=== PATIENT | female | born 1945 | race Caucasian/White ===

== ENCOUNTER 2020-05-23 07:38 | Inpatient (IN) ==
[2020-05-23] MEDS ORDERED: Isovue-370 500 ML BOTTLE IVP ONE ×2 (07:46→10:13)
[2020-05-23 08:36] LABS: Basophils # 0.1 K/mcL (0.0-0.2); Eosinophils % 0.3 %; Hematocrit 31.5 % (35.3-44.9); Hemoglobin 10.1 g/dL (11.5-15.4); Immature Granulocytes % 0.6 % (0-4); Lymphocytes # 1.2 K/mcL (0.6-4.6); Lymphocytes % 9.8 %; Mean Corpuscular HGB Conc 32.1 g/dL (31.6-35.5); Mean Corpuscular Hemoglobin 27.5 pg (28.0-33.3); Mean Corpuscular Volume 85.8 fL (83.0-100.0); Mean Platelet Volume 10.3 fL (9.4-12.4); Monocytes % 7.6 %; Neutrophils # 10.2 K/mcL (1.6-8.9); Platelet Count 339 K/mcL (140-400); Red Blood Count 3.67 M/mcL (3.82-4.97); Red Cell Distribution Width 15.5 % (11.5-14.5); Segmented Neutrophils % 80.7 %; White Blood Count 12.6 K/mcL (4.3-11.1)
[2020-05-23 08:52] LABS: INR 2.6; Prothrombin Time 29.2 Seconds (9.4-12.1)
[2020-05-23 08:58] LABS: BUN/Creatinine Ratio 28 (6-26); Blood Urea Nitrogen 26 mg/dL (8-23); Calcium 9.3 mg/dL (8.6-10.3); Carbon Dioxide 25 mEq/L (23-29); Chloride 99 mEq/L (98-107); Glucose 277 mg/dL (70-105); Osmolality,Calculated 291 (280-300); Potassium 3.9 mEq/L (3.5-5.1); Sodium 133 mEq/L (136-145); eGFR For African Americans > 60 (> 60); eGFR For Non-African Americans 59 (> 60)
[2020-05-23 10:43] LABS: Alanine Aminotransferase 8 Units/L (7-52); Albumin 3.6 g/dL (3.5-5.7); Alkaline Phosphatase 58 Units/L (34-104); Aspartate Amino Transferase 12 Units/L (13-39); Bilirubin,Direct 0.2 mg/dL (0.0-0.2); Bilirubin,Indirect 0.4 mg/dL (0.0-1.0); Bilirubin,Total 0.6 mg/dL (0.3-1.0); Globulin 3.6 g/dL (2.4-3.5); Total Protein 7.2 g/dL (6.4-8.9)
[2020-05-23] MEDS ORDERED: Ampicillin/Sulbactam 1,500 MG in 0.9 % Sodium Chloride Mini Bag 100 ML IVPB ONE (12:15)
[2020-05-23] MEDS ORDERED: Ondansetron ODT 4 MG TAB.RAPDIS PO PRN (13:03)
[2020-05-23] MEDS ORDERED: Acetaminophen 325 MG TABLET PO PRN (13:07)
[2020-05-23] MEDS ORDERED: Naloxone 0.4 MG/ML INJ IVP PRN (13:07)
[2020-05-23] MEDS ORDERED: Dextrose Gel 15 GM/37.5 ML TUBE PO PRN ×2 (13:07)
[2020-05-23] MEDS ORDERED: D5% in Water 1,000 ML IVC PRN (13:07)
[2020-05-23] MEDS ORDERED: *HR* Dextrose 50 % in Water (Vial) 50 ML VIAL IVP PRN (13:07)
[2020-05-23] MEDS ORDERED: Clindamycin 900 MG/50 ML 900 MG/50 ML IV.SOLN IVPB ONE (13:14)
[2020-05-23] MEDS ORDERED: Vancomycin 1,250 MG/262.5 ML IV.SOLN IVPB ONE (13:46)
[2020-05-23] MEDS ORDERED: *HR* FentaNYL (PF) 100 MCG/2 ML VIAL ONE (13:48)
[2020-05-23] MEDS ORDERED: *HR* Propofol 200 MG/20 ML VIAL IVP ONE (13:48)
[2020-05-23] MEDS ORDERED: *HR* Midazolam HCl 2 MG/2 ML VIAL ONE (13:48)
[2020-05-23] MEDS ORDERED: Ondansetron 4 MG/2 ML VIAL ONE (13:50)
[2020-05-23] MEDS ORDERED: Lidocaine -MPF 2% 2 ML VIAL ONE (13:50)
[2020-05-23] MEDS ORDERED: *HR* Succinylcholine 200 MG/10 ML VIAL IVP ONE (13:50)
[2020-05-23] MEDS ORDERED: Lidocaine -MPF 4% 5 ML AMPUL ONE ×3 (13:50→14:17)
[2020-05-23] MEDS ORDERED: Lidocaine 5% OINT 35 APPL/35.44 GM TUBE TP ONE (13:58)
[2020-05-23] MEDS ORDERED: Lidocaine/EPI 1:200k 1% PF 10 ML VIAL ONE (14:16)
[2020-05-23] MEDS ORDERED: Oxymetazoline Nasal SPRAY BOTTLE NS ONE (14:17)
[2020-05-23] MEDS ORDERED: *HR* Rocuronium Bromide 50 MG/5 ML VIAL ONE (16:19)
[2020-05-23] MEDS ORDERED: *HR* Midazolam HCl 5 MG/5 ML VIAL IVP ONE (16:22)
[2020-05-23] MEDS ORDERED: Artificial Tears SOLN 15 ML BOTTLE BOTH EYES PRN (17:17)
[2020-05-23] MEDS: FentaNYL (PF) 1,000 MCG/100 ML IV.SOLN IVC SCH (17:32)
[2020-05-23] MEDS ORDERED: Doxycycline 100 MG VIAL ONE (17:35)
[2020-05-23] MEDS: 0.9 % Sodium Chloride 1,000 ML IVC SCH ×2 (17:39→20:40)
[2020-05-23] MEDS: Doxycycline 100 MG in 0.9 % Sodium Chloride Mini Bag 100 ML IVPB SCH (17:40)
[2020-05-23] MEDS: Piperacillin/Tazobactam 3.375 GM in 0.9 % Sodium Chloride Mini Bag 100 ML IVPB SCH (17:43)
[2020-05-23] MEDS ORDERED: Ampicillin/Sulbactam 1,500 MG in 0.9 % Sodium Chloride Mini Bag 100 ML IVPB SCH (18:00)
[2020-05-23] MEDS: Pantoprazole 40 MG VIAL IVP SCH (18:06)
[2020-05-23] MEDS: Insulin LISPRO 300 UNITS/3 ML VIAL SUBQ SCH (18:07)
[2020-05-23 19:35] LABS: Adenovirus Not Detected (Not Detect); Bordetella Pertussis Not Detected (Not Detect); Chlamydophila pneumoniae Not Detected (Not Detect); Coronavirus 229E Not Detected (Not Detect); Coronavirus HKU1 Not Detected (Not Detect); Coronavirus NL63 Not Detected (Not Detect); Coronavirus OC43 Not Detected (Not Detect); Human Metapneumovirus Not Detected (Not Detect); Human Rhinovirus/Enterovirus Not Detected (Not Detect); Influenza A Subtype 2009 H1 Not Detected (Not Detect); Influenza B Not Detected (Not Detect); Mycoplasma pneumoniae Not Detected (Not Detect); Parainfluenza Virus 1 Not Detected (Not Detect); Parainfluenza Virus 2 Not Detected (Not Detect); Parainfluenza Virus 3 Not Detected (Not Detect); Parainfluenza Virus 4 Not Detected (Not Detect); Respiratory Syncytial Virus Not Detected (Not Detect); SARS-CoV-2 Not Detected (Not Detect)
[2020-05-23] MEDS: *HR* Amiodarone 200 MG TABLET PO SCH (20:26)
[2020-05-23] MEDS: Mirtazapine 15 MG TABLET PO SCH (20:27)
[2020-05-23] MEDS: Nystatin POWDER 30 GM BOTTLE TP SCH (20:28)
[2020-05-23] MEDS: Artificial Tears SOLN 15 ML BOTTLE BOTH EYES SCH (20:32)
[2020-05-23] MEDS ORDERED: *HR* Rivaroxaban 10 MG TABLET PO SCH (21:00)
[2020-05-23] MEDS ORDERED: 0.9 % Sodium Chloride 250 ML ONE (21:13)
[2020-05-23 21:26] LABS: ABG Base Excess -1 mEq/L (-2 to 3); ABG HCO3 25 mEq/L (21-27); ABG Oxygen Saturation 98 % (95-98); ABG PCO2 42 mmHg (35-45); ABG PH 7.37 pH Units (7.32-7.45); ABG PO2 116 mmHg (85-104); ABG TCO2 26 mEq/L (20-26); Blood Gas Modality AF; Blood Gas VT 380 cc
[2020-05-23] MEDS: Chlorhexidine Rinse 15 ML MOUTHWASH MM SCH (21:29)
[2020-05-24] MEDS: Artificial Tears SOLN 15 ML BOTTLE BOTH EYES SCH ×7 (00:24→23:04)
[2020-05-24] MEDS: Insulin LISPRO 300 UNITS/3 ML VIAL SUBQ SCH ×5 (00:24→23:39)
[2020-05-24] MEDS: 0.9 % Sodium Chloride 1,000 ML IVC SCH (01:03)
[2020-05-24] MEDS: Piperacillin/Tazobactam 3.375 GM in 0.9 % Sodium Chloride Mini Bag 100 ML IVPB SCH ×3 (01:04→20:52)
[2020-05-24 04:42] LABS: ABG Base Excess 0 mEq/L (-2 to 3); ABG HCO3 26 mEq/L (21-27); ABG Oxygen Saturation 98 % (95-98); ABG PCO2 45 mmHg (35-45); ABG PH 7.37 pH Units (7.32-7.45); ABG PO2 104 mmHg (85-104); ABG TCO2 27 mEq/L (20-26); Blood Gas VT 380 cc
[2020-05-24 06:00] LABS: Basophils # 0.1 K/mcL (0.0-0.2); Basophils % 0.7 %; Hematocrit 25.2 % (35.3-44.9); Immature Granulocytes % 0.7 % (0-4); Lymphocytes # 0.5 K/mcL (0.6-4.6); Lymphocytes % 5.7 %; Mean Corpuscular Hemoglobin 27.8 pg (28.0-33.3); Mean Corpuscular Volume 89.7 fL (83.0-100.0); Mean Platelet Volume 10.6 fL (9.4-12.4); Monocytes # 0.2 K/mcL (0.0-1.3); Monocytes % 2.5 %; Neutrophils # 7.7 K/mcL (1.6-8.9); Platelet Count 306 K/mcL (140-400); Red Blood Count 2.81 M/mcL (3.82-4.97); Red Cell Distribution Width 15.4 % (11.5-14.5); Segmented Neutrophils % 90.4 %; White Blood Count 8.6 K/mcL (4.3-11.1)
[2020-05-24 06:05] LABS: Hemoglobin 7.8 g/dL (11.5-15.4)
[2020-05-24 06:28] LABS: BUN/Creatinine Ratio 42 (6-26); Blood Urea Nitrogen 41 mg/dL (8-23); Calcium 8.9 mg/dL (8.6-10.3); Carbon Dioxide 24 mEq/L (23-29); Chloride 104 mEq/L (98-107); Glucose 210 mg/dL (70-105); Osmolality,Calculated 302 (280-300); Sodium 138 mEq/L (136-145); eGFR For African Americans > 60 (> 60); eGFR For Non-African Americans 55 (> 60)
[2020-05-24] MEDS: Doxycycline 100 MG in 0.9 % Sodium Chloride Mini Bag 100 ML IVPB SCH ×2 (06:43→20:34)
[2020-05-24] MEDS ORDERED: 0.9 % Sodium Chloride 250 ML ONE ×2 (08:43→22:39)
[2020-05-24] MEDS: Chlorhexidine Rinse 15 ML MOUTHWASH MM SCH ×2 (08:45→20:33)
[2020-05-24] MEDS: *HR* Amiodarone 200 MG TABLET PO SCH ×2 (08:45→20:40)
[2020-05-24] MEDS: dexAMETHasone 4 MG TABLET PO SCH (08:45)
[2020-05-24] MEDS: Pantoprazole 40 MG VIAL IVP SCH (08:46)
[2020-05-24 09:12] LABS: Hematocrit 23.8 % (35.3-44.9); Hemoglobin 7.4 g/dL (11.5-15.4); Mean Corpuscular HGB Conc 31.1 g/dL (31.6-35.5); Mean Corpuscular Hemoglobin 27.7 pg (28.0-33.3); Mean Corpuscular Volume 89.1 fL (83.0-100.0); Mean Platelet Volume 10.6 fL (9.4-12.4); Platelet Count 308 K/mcL (140-400); Red Blood Count 2.67 M/mcL (3.82-4.97); Red Cell Distribution Width 15.6 % (11.5-14.5); White Blood Count 9.9 K/mcL (4.3-11.1)
[2020-05-24 09:13] LABS: INR 1.6; Prothrombin Time 18.1 Seconds (9.4-12.1)
[2020-05-24 09:16] LABS: Activated Partial Thrombo Time 33.9 Seconds (26.0-36.0)
[2020-05-24] MEDS ORDERED: *HR* Midazolam HCl 5 MG/5 ML VIAL IVP ONE (09:44)
[2020-05-24] MEDS ORDERED: *HR* Rocuronium Bromide 50 MG/5 ML VIAL IVP ONE (09:44)
[2020-05-24] MEDS ORDERED: *HR* Propofol 200 MG/20 ML VIAL IVP ONE (09:44)
[2020-05-24] MEDS: Nystatin POWDER 30 GM BOTTLE TP SCH ×2 (09:46→20:39)
[2020-05-24] MEDS: FentaNYL (PF) 1,000 MCG/100 ML IV.SOLN IVC SCH ×2 (09:49→23:20)
[2020-05-24] MEDS: Midazolam HCl 50 MG/100 ML IV.SOLN IVC SCH (15:35)
[2020-05-24] MEDS: Mirtazapine 15 MG TABLET PO SCH (20:39)
[2020-05-24 22:18] LABS: Basophils % 0.1 %; Hematocrit 21.8 % (35.3-44.9); Hemoglobin 6.9 g/dL (11.5-15.4); Immature Granulocytes % 1.3 % (0-4); Lymphocytes # 0.6 K/mcL (0.6-4.6); Lymphocytes % 5.3 %; Mean Corpuscular HGB Conc 31.7 g/dL (31.6-35.5); Mean Corpuscular Hemoglobin 28.2 pg (28.0-33.3); Mean Platelet Volume 9.7 fL (9.4-12.4); Monocytes # 0.6 K/mcL (0.0-1.3); Monocytes % 5.2 %; Neutrophils # 9.6 K/mcL (1.6-8.9); Platelet Count 226 K/mcL (140-400); Red Blood Count 2.45 M/mcL (3.82-4.97); Red Cell Distribution Width 15.4 % (11.5-14.5); Segmented Neutrophils % 88.1 %; White Blood Count 10.8 K/mcL (4.3-11.1)
[2020-05-25] MEDS: Piperacillin/Tazobactam 3.375 GM in 0.9 % Sodium Chloride Mini Bag 100 ML IVPB SCH ×3 (01:31→17:54)
[2020-05-25] MEDS: Artificial Tears SOLN 15 ML BOTTLE BOTH EYES SCH ×5 (03:32→20:21)
[2020-05-25 04:27] LABS: ABG Base Excess 0 mEq/L (-2 to 3); ABG HCO3 25 mEq/L (21-27); ABG Oxygen Saturation 98 % (95-98); ABG PCO2 43 mmHg (35-45); ABG PH 7.37 pH Units (7.32-7.45); ABG PO2 105 mmHg (85-104); ABG TCO2 26 mEq/L (20-26); Blood Gas Modality AF; Blood Gas VT 380 cc
[2020-05-25 04:31] LABS: VBG Ionized Calcium 1.17 mmol/L (1.15-1.35)
[2020-05-25 04:35] LABS: Hematocrit 27.4 % (35.3-44.9)
[2020-05-25 04:36] LABS: Hemoglobin 8.7 g/dL (11.5-15.4)
[2020-05-25 04:38] LABS: INR 1.4; Prothrombin Time 15.9 Seconds (9.4-12.1)
[2020-05-25 04:39] LABS: Activated Partial Thrombo Time 28.2 Seconds (26.0-36.0)
[2020-05-25 05:06] LABS: BUN/Creatinine Ratio 54 (6-26); Blood Urea Nitrogen 52 mg/dL (8-23); Calcium 8.8 mg/dL (8.6-10.3); Carbon Dioxide 25 mEq/L (23-29); Chloride 110 mEq/L (98-107); Glucose 148 mg/dL (70-105); Magnesium 2.4 mg/dL (1.6-2.6); Osmolality,Calculated 309 (280-300); Phosphorous 2.7 mg/dL (2.7-4.5); Potassium 3.8 mEq/L (3.5-5.1); Sodium 141 mEq/L (136-145); eGFR For African Americans > 60 (> 60); eGFR For Non-African Americans 56 (> 60)
[2020-05-25] MEDS: Insulin LISPRO 300 UNITS/3 ML VIAL SUBQ SCH ×3 (05:38→18:16)
[2020-05-25] MEDS: Doxycycline 100 MG in 0.9 % Sodium Chloride Mini Bag 100 ML IVPB SCH ×2 (05:44→18:47)
[2020-05-25] MEDS: Chlorhexidine Rinse 15 ML MOUTHWASH MM SCH ×2 (08:45→20:21)
[2020-05-25] MEDS: Pantoprazole 40 MG VIAL IVP SCH (08:45)
[2020-05-25] MEDS: *HR* Amiodarone 200 MG TABLET PO SCH ×2 (08:46→19:23)
[2020-05-25] MEDS: dexAMETHasone 4 MG TABLET PO SCH (08:46)
[2020-05-25] MEDS: Nystatin POWDER 30 GM BOTTLE TP SCH ×2 (08:47→20:21)
[2020-05-25] MEDS: Midazolam HCl 50 MG/100 ML IV.SOLN IVC SCH (17:38)
[2020-05-25] MEDS ORDERED: *HR* LORazepam 2 MG/ML VIAL ONE (18:06)
[2020-05-25] MEDS ORDERED: *HR* LORazepam 2 MG/ML VIAL IVP ONE (18:18)
[2020-05-25] MEDS: Mirtazapine 15 MG TABLET PO SCH (19:23)
[2020-05-25] MEDS ORDERED: Vancomycin 1,250 MG/262.5 ML IV.SOLN IVPB SCH (21:00)
[2020-05-26] MEDS: Artificial Tears SOLN 15 ML BOTTLE BOTH EYES SCH ×4 (00:34→14:27)
[2020-05-26] MEDS: Insulin LISPRO 300 UNITS/3 ML VIAL SUBQ SCH ×4 (00:38→17:48)
[2020-05-26] MEDS: Piperacillin/Tazobactam 3.375 GM in 0.9 % Sodium Chloride Mini Bag 100 ML IVPB SCH ×3 (03:02→17:36)
[2020-05-26] MEDS: Doxycycline 100 MG in 0.9 % Sodium Chloride Mini Bag 100 ML IVPB SCH (05:53)
[2020-05-26] MEDS: dexAMETHasone 4 MG TABLET PO SCH (08:44)
[2020-05-26] MEDS: *HR* Amiodarone 200 MG TABLET PO SCH (08:44)
[2020-05-26] MEDS: Pantoprazole 40 MG VIAL IVP SCH (08:44)
[2020-05-26] MEDS: Chlorhexidine Rinse 15 ML MOUTHWASH MM SCH ×2 (08:45→20:56)
[2020-05-26] MEDS: Nystatin POWDER 30 GM BOTTLE TP SCH ×2 (09:10→20:56)
[2020-05-26] MEDS: Midazolam HCl 50 MG/100 ML IV.SOLN IVC SCH (11:24)
[2020-05-26 12:42] LABS: Basophils % 0.3 %; Eosinophils % 0.1 %; Hematocrit 26.8 % (35.3-44.9); Hemoglobin 8.4 g/dL (11.5-15.4); Immature Granulocytes % 0.7 % (0-4); Lymphocytes # 0.5 K/mcL (0.6-4.6); Lymphocytes % 6.8 %; Mean Corpuscular HGB Conc 31.3 g/dL (31.6-35.5); Mean Corpuscular Hemoglobin 28.4 pg (28.0-33.3); Mean Corpuscular Volume 90.5 fL (83.0-100.0); Mean Platelet Volume 9.4 fL (9.4-12.4); Monocytes # 0.1 K/mcL (0.0-1.3); Monocytes % 0.9 %; Neutrophils # 6.2 K/mcL (1.6-8.9); Platelet Count 245 K/mcL (140-400); Red Blood Count 2.96 M/mcL (3.82-4.97); Red Cell Distribution Width 15.6 % (11.5-14.5); Segmented Neutrophils % 91.2 %; White Blood Count 6.8 K/mcL (4.3-11.1)
[2020-05-26 12:46] LABS: VBG Ionized Calcium 1.22 mmol/L (1.15-1.35)
[2020-05-26 12:59] LABS: BUN/Creatinine Ratio 53 (6-26); Blood Urea Nitrogen 37 mg/dL (8-23); Calcium 8.8 mg/dL (8.6-10.3); Carbon Dioxide 24 mEq/L (23-29); Chloride 110 mEq/L (98-107); Glucose 209 mg/dL (70-105); Magnesium 2.1 mg/dL (1.6-2.6); Osmolality,Calculated 307 (280-300); Phosphorous 1.3 mg/dL (2.7-4.5); Potassium 3.6 mEq/L (3.5-5.1); Sodium 141 mEq/L (136-145); eGFR For African Americans > 60 (> 60); eGFR For Non-African Americans > 60 (> 60)
[2020-05-26] MEDS ORDERED: Barium Sulfate 1 TAB TABLET PO ONE (13:49)
[2020-05-26] MEDS ORDERED: E-Z-PAQUE (BARIUM SULF) SUSP 1 BOTTLE PO ONE (13:49)
[2020-05-26] MEDS ORDERED: Potassium Phosphate 44 MEQ in 0.9 % Sodium Chloride 250 ML IVPB ONE (15:54)
[2020-05-26] MEDS: *HR* Heparin 5,000 UNIT/ML VIAL SQ SCH (17:35)
[2020-05-26] MEDS: Mirtazapine 15 MG TABLET PO SCH (20:56)
[2020-05-27] MEDS: Insulin LISPRO 300 UNITS/3 ML VIAL SUBQ SCH ×5 (00:15→22:56)
[2020-05-27] MEDS: Piperacillin/Tazobactam 3.375 GM in 0.9 % Sodium Chloride Mini Bag 100 ML IVPB SCH ×2 (02:24→10:16)
[2020-05-27 05:15] LABS: BUN/Creatinine Ratio 53 (6-26); Blood Urea Nitrogen 34 mg/dL (8-23); Calcium 8.6 mg/dL (8.6-10.3); Carbon Dioxide 26 mEq/L (23-29); Chloride 109 mEq/L (98-107); Glucose 187 mg/dL (70-105); Magnesium 1.9 mg/dL (1.6-2.6); Osmolality,Calculated 303 (280-300); Potassium 3.9 mEq/L (3.5-5.1); Sodium 140 mEq/L (136-145); eGFR For African Americans > 60 (> 60); eGFR For Non-African Americans > 60 (> 60)
[2020-05-27 05:21] LABS: Hematocrit 24.9 % (35.3-44.9); Immature Granulocytes % 0.3 % (0-4); Lymphocytes # 0.9 K/mcL (0.6-4.6); Lymphocytes % 15.1 %; Mean Corpuscular HGB Conc 32.1 g/dL (31.6-35.5); Mean Corpuscular Hemoglobin 28.3 pg (28.0-33.3); Mean Platelet Volume 9.8 fL (9.4-12.4); Monocytes # 0.4 K/mcL (0.0-1.3); Monocytes % 7.5 %; Neutrophils # 4.5 K/mcL (1.6-8.9); Platelet Count 234 K/mcL (140-400); Red Blood Count 2.83 M/mcL (3.82-4.97); Red Cell Distribution Width 15.2 % (11.5-14.5); Segmented Neutrophils % 77.1 %; White Blood Count 5.8 K/mcL (4.3-11.1)
[2020-05-27 05:29] LABS: Thyroid Stimulating Hormone 0.154 mcIU/mL (0.340-5.600)
[2020-05-27] MEDS: *HR* Heparin 5,000 UNIT/ML VIAL SQ SCH ×2 (05:42→18:45)
[2020-05-27] MEDS: Pantoprazole 40 MG VIAL IVP SCH (10:15)
[2020-05-27] MEDS: dexAMETHasone 4 MG TABLET PO SCH (10:15)
[2020-05-27] MEDS: Chlorhexidine Rinse 15 ML MOUTHWASH MM SCH (10:15)
[2020-05-27] MEDS: *HR* Amiodarone 200 MG TABLET PO SCH ×2 (10:15→10:27)
[2020-05-27] MEDS: Nystatin POWDER 30 GM BOTTLE TP SCH ×3 (10:16→22:54)
[2020-05-27] MEDS ORDERED: Ondansetron ODT 4 MG TAB.RAPDIS PO PRN (13:22)
[2020-05-27] MEDS ORDERED: D5% in Water 1,000 ML IVC PRN (13:22)
[2020-05-27] MEDS ORDERED: *HR* Dextrose 50 % in Water (Vial) 50 ML VIAL IVP PRN (13:22)
[2020-05-27] MEDS ORDERED: Dextrose Gel 15 GM/37.5 ML TUBE PO PRN ×2 (13:22)
[2020-05-27] MEDS ORDERED: Acetaminophen 325 MG TABLET PO PRN (13:22)
[2020-05-27] MEDS ORDERED: Naloxone 0.4 MG/ML INJ IVP PRN (13:22)
[2020-05-27] MEDS ORDERED: Perflutren Lipid Microsphere 1.3 ML in 0.9 % Sodium Chloride 8.7 ML IVP PRN (17:18)
[2020-05-27] MEDS: Mirtazapine 15 MG TABLET PO SCH (21:08)
[2020-05-28 04:07] LABS: Basophils % 0.2 %; Eosinophils % 0.2 %; Hematocrit 24.5 % (35.3-44.9); Hemoglobin 8.1 g/dL (11.5-15.4); Immature Granulocytes % 0.7 % (0-4); Lymphocytes % 22.1 %; Mean Corpuscular HGB Conc 33.1 g/dL (31.6-35.5); Mean Corpuscular Hemoglobin 28.5 pg (28.0-33.3); Mean Corpuscular Volume 86.3 fL (83.0-100.0); Mean Platelet Volume 9.5 fL (9.4-12.4); Monocytes # 0.3 K/mcL (0.0-1.3); Monocytes % 7.3 %; Platelet Count 228 K/mcL (140-400); Red Blood Count 2.84 M/mcL (3.82-4.97); Red Cell Distribution Width 15.1 % (11.5-14.5); Segmented Neutrophils % 69.5 %; White Blood Count 4.4 K/mcL (4.3-11.1)
[2020-05-28 04:21] LABS: VBG Ionized Calcium 1.23 mmol/L (1.15-1.35)
[2020-05-28 04:24] LABS: Magnesium 1.7 mg/dL (1.6-2.6); Phosphorous 2.1 mg/dL (2.7-4.5)
[2020-05-28] MEDS: *HR* Heparin 5,000 UNIT/ML VIAL SQ SCH (05:46)
[2020-05-28] MEDS ORDERED: Potassium Phosphate 44 MEQ in 0.9 % Sodium Chloride 250 ML IVPB ONE (08:15)
[2020-05-28] MEDS ORDERED: Pantoprazole 40 MG VIAL IVP SCH (09:00)
[2020-05-28] MEDS: dexAMETHasone 4 MG TABLET PO SCH (09:50)
[2020-05-28] MEDS: Nystatin POWDER 30 GM BOTTLE TP SCH ×2 (09:51→21:02)
[2020-05-28] MEDS: Insulin LISPRO 300 UNITS/3 ML VIAL SUBQ SCH ×4 (09:51→21:01)
[2020-05-28] MEDS: Mirtazapine 15 MG TABLET PO SCH (20:58)
[2020-05-29 07:04] LABS: Hematocrit 26.9 % (35.3-44.9); Hemoglobin 8.5 g/dL (11.5-15.4); Mean Corpuscular HGB Conc 31.6 g/dL (31.6-35.5); Mean Corpuscular Hemoglobin 27.6 pg (28.0-33.3); Mean Corpuscular Volume 87.3 fL (83.0-100.0); Mean Platelet Volume 9.9 fL (9.4-12.4); Platelet Count 247 K/mcL (140-400); Red Blood Count 3.08 M/mcL (3.82-4.97); Red Cell Distribution Width 14.9 % (11.5-14.5); White Blood Count 4.7 K/mcL (4.3-11.1)
[2020-05-29] MEDS: Nystatin POWDER 30 GM BOTTLE TP SCH ×2 (11:10→21:19)
[2020-05-29] MEDS: dexAMETHasone 4 MG TABLET PO SCH (11:11)
[2020-05-29] MEDS: Insulin LISPRO 300 UNITS/3 ML VIAL SUBQ SCH ×4 (11:11→21:20)
[2020-05-29] MEDS ORDERED: Sennosides 8.6 MG TABLET PO PRN (14:43)
[2020-05-29] MEDS: *HR* Rivaroxaban 10 MG TABLET PO SCH (17:26)
[2020-05-29] MEDS: Furosemide 20 MG TABLET PO SCH (17:27)
[2020-05-29] MEDS: Mirtazapine 15 MG TABLET PO SCH (21:19)
[2020-05-30] MEDS: Furosemide 20 MG TABLET PO SCH ×2 (08:33→16:35)
[2020-05-30] MEDS: amLODIPine 5 MG TABLET PO SCH (08:33)
[2020-05-30] MEDS: dexAMETHasone 4 MG TABLET PO SCH (08:33)
[2020-05-30] MEDS: Insulin LISPRO 300 UNITS/3 ML VIAL SUBQ SCH ×4 (08:33→22:20)
[2020-05-30] MEDS: Nystatin POWDER 30 GM BOTTLE TP SCH ×2 (08:34→22:16)
[2020-05-30] MEDS ORDERED: *HR* Amiodarone 200 MG TABLET PO SCH ×2 (09:00)
[2020-05-30] MEDS: *HR* Rivaroxaban 10 MG TABLET PO SCH (16:35)
[2020-05-30] MEDS: Mirtazapine 15 MG TABLET PO SCH (22:16)
[2020-05-31] MEDS: Insulin LISPRO 300 UNITS/3 ML VIAL SUBQ SCH ×4 (08:28→21:12)
[2020-05-31] MEDS: amLODIPine 5 MG TABLET PO SCH (08:39)
[2020-05-31] MEDS: dexAMETHasone 4 MG TABLET PO SCH (08:39)
[2020-05-31] MEDS: Nystatin POWDER 30 GM BOTTLE TP SCH ×2 (08:39→21:11)
[2020-05-31] MEDS: Furosemide 20 MG TABLET PO SCH ×2 (08:39→16:32)
[2020-05-31 11:05] LABS: Basophils % 0.4 %; Eosinophils # 0.4 K/mcL (0.0-0.6); Eosinophils % 5.4 %; Hematocrit 30.3 % (35.3-44.9); Hemoglobin 9.7 g/dL (11.5-15.4); Immature Granulocytes % 2.4 % (0-4); Lymphocytes # 1.4 K/mcL (0.6-4.6); Mean Corpuscular Hemoglobin 28.9 pg (28.0-33.3); Mean Corpuscular Volume 90.2 fL (83.0-100.0); Mean Platelet Volume 9.8 fL (9.4-12.4); Monocytes # 0.7 K/mcL (0.0-1.3); Monocytes % 8.9 %; Neutrophils # 5.1 K/mcL (1.6-8.9); Platelet Count 271 K/mcL (140-400); Red Blood Count 3.36 M/mcL (3.82-4.97); Red Cell Distribution Width 15.7 % (11.5-14.5); Segmented Neutrophils % 64.9 %
[2020-05-31 11:08] LABS: White Blood Count 7.8 K/mcL (4.3-11.1)
[2020-05-31] MEDS: *HR* Rivaroxaban 10 MG TABLET PO SCH (16:32)
[2020-05-31] MEDS: Mirtazapine 15 MG TABLET PO SCH (21:11)
[2020-06-01] MEDS: Furosemide 20 MG TABLET PO SCH ×2 (08:55→17:28)
[2020-06-01] MEDS: amLODIPine 5 MG TABLET PO SCH (08:55)
[2020-06-01] MEDS: Insulin LISPRO 300 UNITS/3 ML VIAL SUBQ SCH ×4 (08:57→21:10)
[2020-06-01] MEDS: Nystatin POWDER 30 GM BOTTLE TP SCH ×2 (08:57→21:00)
[2020-06-01] MEDS: *HR* Rivaroxaban 10 MG TABLET PO SCH (17:28)
[2020-06-01] MEDS: Mirtazapine 15 MG TABLET PO SCH (20:56)
[2020-06-02] MEDS: Furosemide 20 MG TABLET PO SCH ×2 (07:48→17:32)
[2020-06-02] MEDS: amLODIPine 5 MG TABLET PO SCH (07:49)
[2020-06-02] MEDS: Nystatin POWDER 30 GM BOTTLE TP SCH ×2 (07:54→21:46)
[2020-06-02] MEDS: Insulin LISPRO 300 UNITS/3 ML VIAL SUBQ SCH ×4 (07:59→21:47)
[2020-06-02] MEDS: *HR* Rivaroxaban 10 MG TABLET PO SCH (17:32)
[2020-06-02] MEDS: Mirtazapine 15 MG TABLET PO SCH (21:45)
[2020-06-03 07:58] LABS: Adenovirus Not Detected (Not Detect); Bordetella Pertussis Not Detected (Not Detect); Chlamydophila pneumoniae Not Detected (Not Detect); Coronavirus 229E Not Detected (Not Detect); Coronavirus HKU1 Not Detected (Not Detect); Coronavirus NL63 Not Detected (Not Detect); Coronavirus OC43 Not Detected (Not Detect); Human Metapneumovirus Not Detected (Not Detect); Human Rhinovirus/Enterovirus Not Detected (Not Detect); Influenza A Subtype 2009 H1 Not Detected (Not Detect); Influenza B Not Detected (Not Detect); Mycoplasma pneumoniae Not Detected (Not Detect); Parainfluenza Virus 1 Not Detected (Not Detect); Parainfluenza Virus 2 Not Detected (Not Detect); Parainfluenza Virus 3 Not Detected (Not Detect); Parainfluenza Virus 4 Not Detected (Not Detect); Respiratory Syncytial Virus Not Detected (Not Detect); SARS-CoV-2 Not Detected (Not Detect)
[2020-06-03] MEDS: amLODIPine 5 MG TABLET PO SCH (08:09)
[2020-06-03] MEDS: Furosemide 20 MG TABLET PO SCH (08:10)
[2020-06-03] MEDS: Insulin LISPRO 300 UNITS/3 ML VIAL SUBQ SCH ×2 (08:16→12:40)
[2020-06-03 12:17] VITALS: BP 130/78
== END 2020-06-03 14:55 | DRG 12 ==
LOC: EMEROOARM 07:38 → 2NNU 07:38 → ICNU 13:30 → SUATTDRO 14:00 → ICNU 15:47 → 3ANU 05-27 18:32
PROVIDERS: ADMIT Internal Medicine; ATTEND Student in an Organized Health Care Education/Training Program
PROC: ENDOBRF (2020-05-24 15:20)

== ENCOUNTER 2021-06-04 11:34 | Observation (INO) ==
[2021-06-04] MEDS ORDERED: Ondansetron 4 MG/2 ML VIAL IVP ONE (12:01)
[2021-06-04] MEDS ORDERED: 0.9 % Sodium Chloride 1,000 ML IV ONE (12:01)
[2021-06-04 12:45] LABS: Basophils # 0.1 K/mcL (0.0-0.2); Basophils % 1.1 %; Eosinophils # 0.3 K/mcL (0.0-0.6); Hematocrit 44.3 % (35.3-44.9); Hemoglobin 14.6 g/dL (11.5-15.4); Immature Granulocytes % 0.5 % (0-4); Lymphocytes # 1.4 K/mcL (0.6-4.6); Lymphocytes % 15.6 %; Mean Corpuscular Hemoglobin 28.7 pg (28.0-33.3); Mean Corpuscular Volume 87.2 fL (83.0-100.0); Mean Platelet Volume 10.9 fL (9.4-12.4); Monocytes # 0.7 K/mcL (0.0-1.3); Monocytes % 7.6 %; Neutrophils # 6.7 K/mcL (1.6-8.9); Platelet Count 195 K/mcL (140-400); Red Blood Count 5.08 M/mcL (3.82-4.97); Red Cell Distribution Width 14.2 % (11.5-14.5); Segmented Neutrophils % 72.2 %; White Blood Count 9.2 K/mcL (4.3-11.1)
[2021-06-04 13:12] LABS: Alanine Aminotransferase 14 Units/L (7-52); Albumin 4.8 g/dL (3.5-5.7); Albumin/Globulin Ratio 1.7 (1.1-2.2); Alkaline Phosphatase 80 Units/L (34-104); Aspartate Amino Transferase 16 Units/L (13-39); BUN/Creatinine Ratio 18 (6-26); Bilirubin,Total 0.9 mg/dL (0.3-1.0); Blood Urea Nitrogen 15 mg/dL (8-23); Calcium 9.7 mg/dL (8.6-10.3); Carbon Dioxide 24 mEq/L (23-29); Chloride 98 mEq/L (98-107); Globulin 2.9 g/dL (2.4-3.5); Glucose 190 mg/dL (70-105); Magnesium 1.5 mg/dL (1.6-2.6); Osmolality,Calculated 284 (280-300); Potassium 3.8 mEq/L (3.5-5.1); Sodium 134 mEq/L (136-145); Total Protein 7.7 g/dL (6.4-8.9); Troponin I < 0.03 ng/mL (< 0.04); eGFR For African Americans > 60 (> 60); eGFR For Non-African Americans > 60 (> 60)
[2021-06-04 13:21] LABS: Thyroid Stimulating Hormone 4.429 mcIU/mL (0.340-5.600)
[2021-06-04 14:17] LABS: Influenza A PCR Negative (Negative); Influenza B PCR Negative (Negative); Resp. Syncytial Virus PCR Negative (Negative)
[2021-06-04 14:23] LABS: SARS-CoV-2 by PCR (In House) Negative (Negative)
[2021-06-04 18:30] LABS: Bacteria,Urine Few per hpf (None-Few); Bilirubin,Urine Negative (Negative); Blood,Urine Negative (Negative); Clarity,Urine Turbid (Clear); Color,Urine Light-Yellow (Yellow); Glucose,Urine (UA) 30 mg/dL (Normal); Ketones,Urine Trace mg/dL (Negative); Leukocyte Esterase,Urine Small (Negative); Mucus,Urine Few per lpf (None-Few); Nitrite,Urine Negative (Negative); PH,Urine 6.5 pH Units (5.0-8.0); Protein,Urine Trace mg/dL (Neg-Trace); RBC,Urine 0-3 per hpf (0-3); WBC,Urine 15-30 per hpf (0-3)
[2021-06-04 18:43] LABS: Lipase 47 Units/L (11-82)
[2021-06-04] MEDS ORDERED: cefTRIAXone 1,000 MG in 0.9 % Sodium Chloride 10 ML IVP ONE (18:47)
[2021-06-04] MEDS ORDERED: Ondansetron ODT 4 MG TAB.RAPDIS SL PRN (19:50)
[2021-06-04] MEDS ORDERED: Acetaminophen 325 MG TABLET PO PRN (19:50)
[2021-06-04] MEDS ORDERED: *HR* OxyCODONE Immed Rel 5 MG TABLET PO PRN (19:50)
[2021-06-04] MEDS ORDERED: *HR* HYDROcodone/Acet 5/325 mg TABLET PO PRN (19:50)
[2021-06-04] MEDS ORDERED: Melatonin 3 MG TABLET PO PRN (19:50)
[2021-06-04] MEDS ORDERED: Naloxone 0.4 MG/ML INJ IVP PRN (19:50)
[2021-06-04] MEDS ORDERED: D5% in Water 1,000 ML IVC PRN (19:52)
[2021-06-04] MEDS ORDERED: *HR* Dextrose 50 % in Water (Syg) 50 ML SYRINGE IVP PRN (19:52)
[2021-06-04] MEDS ORDERED: Dextrose 4 GM Chewable Tablets PO PRN ×2 (19:52)
[2021-06-04] MEDS ORDERED: 0.9 % Sodium Chloride 1,000 ML IVC SCH (20:00)
[2021-06-04] MEDS ORDERED: Insulin LISPRO 300 UNITS/3 ML VIAL SUBQ SCH (21:00)
[2021-06-04] MEDS: lisinopriL 10 MG TABLET PO SCH (21:32)
[2021-06-04] MEDS: amLODIPine 5 MG TABLET PO SCH (21:32)
[2021-06-05 02:43] LABS: Hematocrit 39.8 % (35.3-44.9); Mean Corpuscular HGB Conc 32.7 g/dL (31.6-35.5); Mean Corpuscular Hemoglobin 28.4 pg (28.0-33.3); Mean Corpuscular Volume 87.1 fL (83.0-100.0); Mean Platelet Volume 10.8 fL (9.4-12.4); Platelet Count 193 K/mcL (140-400); Red Blood Count 4.57 M/mcL (3.82-4.97); Red Cell Distribution Width 14.4 % (11.5-14.5); White Blood Count 9.8 K/mcL (4.3-11.1)
[2021-06-05 02:56] LABS: BUN/Creatinine Ratio 19 (6-26); Blood Urea Nitrogen 16 mg/dL (8-23); Calcium 9.3 mg/dL (8.6-10.3); Carbon Dioxide 25 mEq/L (23-29); Chloride 104 mEq/L (98-107); Cholesterol 226 mg/dL (< 200); Glucose 188 mg/dL (70-105); HDL Cholesterol 45 mg/dL (40-59); LDL Cholesterol,Calculated 152 mg/dL (< 100); Magnesium 1.5 mg/dL (1.6-2.6); Osmolality,Calculated 294 (280-300); Phosphorous 2.6 mg/dL (2.7-4.5); Potassium 3.4 mEq/L (3.5-5.1); Sodium 139 mEq/L (136-145); Triglycerides 146 mg/dL (< 150); eGFR For African Americans > 60 (> 60); eGFR For Non-African Americans > 60 (> 60)
[2021-06-05 03:47] LABS: Estimated Average Glucose 186 mg/dl; Hemoglobin A1C 8.1 %
[2021-06-05 07:41] VITALS: TEMP 98.3
[2021-06-05] MEDS ORDERED: cefTRIAXone 1,000 MG in 0.9 % Sodium Chloride 10 ML IVPB SCH (09:00)
[2021-06-05] MEDS: amLODIPine 5 MG TABLET PO SCH (09:03)
[2021-06-05] MEDS: lisinopriL 10 MG TABLET PO SCH (09:03)
[2021-06-05] MEDS: Insulin LISPRO 300 UNITS/3 ML VIAL SUBQ SCH ×2 (09:07→12:01)
[2021-06-05] MEDS ORDERED: lisinopriL 20 MG TABLET PO SCH (09:30)
[2021-06-05] MEDS ORDERED: Nilotinib Hcl [Tasigna] 150 MG Capsule PO SCH (09:45)
[2021-06-05 11:14] VITALS: BP 127/72; PULSE 61; O2SAT 95
[2021-06-05] MEDS ORDERED: *HR* Rivaroxaban 10 MG TABLET PO SCH (17:00)
[2021-06-05 22:20] LABS: A.calcoaceticus-baumannii cplx Not Detected (Not Detect); Bacteroides fragilis by PCR Not Detected (Not Detect); Enterobacter cloacae Cmplx PCR Not Detected (Not Detect); Enterobacterales by PCR Not Detected (Not Detect); Enterococcus faecalis by PCR Not Detected (Not Detect); Enterococcus faecium by PCR Not Detected (Not Detect); Staph epidermidis by PCR Not Detected (Not Detect); Staph lugdunensis by PCR Not Detected (Not Detect); Staphylococcus aureus by PCR Not Detected (Not Detect); Staphylococcus by PCR DETECTED (Not Detect); Streptococcus agalactiae(B)PCR Not Detected (Not Detect); Streptococcus by PCR Not Detected (Not Detect); Streptococcus pneumoniae PCR Not Detected (Not Detect); Streptococcus pyogenes (A) PCR Not Detected (Not Detect)
[2021-06-05 22:21] LABS: Candida albicans by PCR Not Detected (Not Detect); Candida auris by PCR Not Detected (Not Detect); Candida glabrata by PCR Not Detected (Not Detect); Candida krusei by PCR Not Detected (Not Detect); Candida parapsilosis by PCR Not Detected (Not Detect); Candida tropicalis by PCR Not Detected (Not Detect); Crypto. neoformans/gattii PCR Not Detected (Not Detect); Escherichia coli by PCR Not Detected (Not Detect); Klebs. pneumoniae group by PCR Not Detected (Not Detect); Klebsiella aerogenes by PCR Not Detected (Not Detect); Klebsiella oxytoca by PCR Not Detected (Not Detect); Proteus by PCR Not Detected (Not Detect); Pseudomonas aeruginosa by PCR Not Detected (Not Detect); Salmonella species by PCR Not Detected (Not Detect); Serratia marcescens by PCR Not Detected (Not Detect); Stenotrophomonas maltophilia Not Detected (Not Detect)
== END 2021-06-05 15:21 | disposition home or self-care (01) ==
LOC: EMEROOARM 11:34 → 3BNU 11:34 → SUATTDRO 19:50 → 3BNU 20:13
PROVIDERS: ADMIT Internal Medicine; ATTEND Internal Medicine